=== PATIENT | male | born 2000 | race African-American/Black ===

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

== ENCOUNTER 2018-02-13 11:18 | Emergency (ER) | payer SELFPAY ==
[~2018-02-13] VITALS: Ht 187.9 cm; Wt 86.2 kg
[~2018-02-13 11:18] MED LIST: VISTARIL25 MG PO
[2018-02-13] MEDS ORDERED: VISTARIL25 MG PO (11:48)
== END 2018-02-13 12:00 | disposition home or self-care (01) ==
LOC: ED 11:18
DX: F41.9 Anxiety disorder, unspecified (principal); Z76.0 Encounter for issue of repeat prescription

== ENCOUNTER 2021-05-16 15:57 | Emergency (ER) | payer SELFPAY ==
[~2021-05-16] VITALS: Ht 187.9 cm; Wt 113.4 kg
== END 2021-05-16 20:00 | disposition left against medical advice (07) ==
LOC: ED 15:57
DX: R21 Rash and other nonspecific skin eruption (principal); R09.81 Nasal congestion; Z53.21 Procedure and treatment not carried out due to patient leaving prior to being seen by health care provider

== ENCOUNTER 2021-12-12 18:52 | Emergency (ER) | payer SELFPAY ==
[~2021-12-12] VITALS: Ht 187.9 cm; Wt 113.4 kg
[2021-12-12 20:10] LABS: BILIRUBIN Negative (Negative); BLOOD Negative (Negative); CLARITY Clear (Clear); COLOR Yellow (Yellow); GLUCOSE Negative (Negative); KETONE Negative (Negative); LEUKO ESTERASE Negative (Negative); NITRITE Negative (Negative); SPECIFIC GRAVITY <= 1.005 (1.001-1.030); UROBILINOGEN 0.2 E.U./dl (0.0-1.0)
[2021-12-12 20:46] LABS: BACTERIA TRACE; EPITHELIAL CELLS 0-2; RBC 0-2 rbc/hpf (0-2); WBC 0-2 wbc/hpf (0-5)
[2021-12-12] MEDS ORDERED: ACYCLOVIR400 MG PO (21:03)
[2021-12-12] MEDS ORDERED: VIBRAMYCIN100 MG PO (21:03)
[2021-12-12] MEDS ORDERED: PYRIDIUM200 M1 PO (21:03)
== END 2021-12-12 21:09 | disposition home or self-care (01) ==
LOC: ED 18:52
PROVIDERS: Emergency Medicine
DX: R30.0 Dysuria (principal); R05.9 Cough, unspecified; N34.2 Other urethritis; R21 Rash and other nonspecific skin eruption; Z88.1 Allergy status to other antibiotic agents

== ENCOUNTER 2022-02-25 01:59 | Emergency (ER) | payer SELFPAY ==
[~2022-02-25] VITALS: Wt 113.4 kg
[~2022-02-25 01:59] MED LIST changes: +ACYCLOVIR400 MG PO; +PYRIDIUM200 M1 PO; +VIBRAMYCIN100 MG PO
== END 2022-02-25 06:14 | disposition left against medical advice (07) ==
LOC: ED 01:59
DX: S21.131A Puncture wound without foreign body of right front wall of thorax without penetration into thoracic cavity, initial encounter (principal); Z88.1 Allergy status to other antibiotic agents; W32.0XXA Accidental handgun discharge, initial encounter; Y93.89 Activity, other specified; Y92.89 Other specified places as the place of occurrence of the external cause; Y99.8 Other external cause status

== ENCOUNTER 2022-09-18 20:37 | Emergency (ER) | payer SELFPAY ==
[~2022-09-18] VITALS: Ht 187.9 cm; Wt 113.4 kg
[2022-09-18] MEDS ORDERED: FLONASE ALLERG9.9 ML NAS (22:24)
== END 2022-09-18 22:28 | disposition home or self-care (01) ==
LOC: ED 20:37
DX: J32.8 Other chronic sinusitis (principal); Z20.822 Contact with and (suspected) exposure to COVID-19; Z88.1 Allergy status to other antibiotic agents